=== PATIENT | female | born 1990 | race Caucasian/White ===

== ENCOUNTER 2016-04-08 15:33 | Emergency (ER) | payer MEDICAID ==
[~2016-04-08] VITALS: Ht 157.5 cm; Wt 70.0 kg
[2016-04-08 15:42] VITALS: Ht 157.5 cm; Wt 70.0 kg
--- NOTE | 2016-04-08 18:36 | ERD ---
ER Documentation Chief Complaint Date/Time DATE: 04/08/16 TIME: 18:34 Chief Complaint ap rad back x 3 days HPI This 26-year-old female who presents to the emergency department today complaining of abdominal pain for the past 2 months and patien states that it got worse yesterday. She states her last menstrual period was on the 30th but had some spotting this morning. She took Advil this morning. Denies any nausea vomiting fevers or chills. ROS All systems reviewed and are negative except as per history of present illness. Medications Home Meds Active Scripts Hydrocodone/Acetaminophen ([place] 5-325 Tablet) 1 Each Tablet, 1 TAB PO Q6H Y for PAIN, #10 TAB Prov:BUSHRA MCGREGOR PA-C 04/08/16 Ibuprofen* (Motrin*) 800 Mg Tab, 800 MG PO Q6, #30 TAB Prov:BUSHRA MCGREGOR PA-C 04/08/16 Allergies Allergies: Coded Allergies: No Known Allergy (Unverified , 02/16/15) PMhx/Soc Medical and Surgical Hx: pt denies Medical Hx, pt denies Surgical Hx Hx Alcohol Use: No Hx Substance Use: No Hx Tobacco Use: No Smoking Status: Never smoker Physical Exam Vitals Vital Signs Date Time Temp Pulse Resp B/P Pulse Ox O2 Delivery O2 Flow Rate FiO2 04/08/16 15:42 98.1 78 20 130/78 99 Physical Exam Const: No acute distress Head: Atraumatic Eyes: Normal Conjunctiva ENT: Normal External Ears, Nose and Mouth. Neck: Full range of motion..~ No meningismus. Resp: Clear to auscultation bilaterally Cardio: Regular rate and rhythm, no murmurs Abd: Soft, diffuse abdominal tenderness non distended. Normal bowel sounds Skin: No petechiae or rashes Back: No midline or flank tenderness Ext: No cyanosis, or edema Neur: Awake and alert Psych: Normal Mood and Affect Result Diagram: 04/08/16194404/08/161944 Results 24 hrs Laboratory Tests Test 04/08/16 19:02 04/08/16 19:45 Bedside Urine Blood 1+ 1+ Bedside Urine Glucose (UA) Negative Negative Bedside Urine Ketones (LAB) Negative Negative Bedside Urine Leukocyte Esterase (L Negative Negative Bedside Urine Nitrite (LAB) Negative Negative Bedside Urine Protein (LAB) Negative Negative Bedside Urine pH (LAB) 6.0 6.0 Alanine Aminotransferase (ALT/SGPT) 50IU/L Albumin 4.6g/dl Albumin/Globulin Ratio 1.35 Alkaline Phosphatase 57IU/L Anion Gap 18 Aspartate Amino Transf (AST/SGOT) 24IU/L Basophils # 0.010^3/ul Basophils % 0.2% Blood Urea Nitrogen 9mg/dl Calcium Level 9.4mg/dl Carbon Dioxide Level 27mmol/L Chloride Level 102mmol/L Creatinine 0.54mg/dl Direct Bilirubin 0.00mg/dl Eosinophils # 0.110^3/ul Eosinophils % 1.0% Globulin 3.40g/dl Glucose Level 122mg/dl Hematocrit 34.5% Hemoglobin 11.8g/dl Indirect Bilirubin 0.2mg/dl Lipase 134U/L Lymphocytes # 2.610^3/ul Lymphocytes % 28.2% Mean Corpuscular Hemoglobin 29.4pg Mean Corpuscular Hemoglobin Concent 34.1g/dl Mean Corpuscular Volume 86.3fl Mean Platelet Volume 9.4fl Monocytes # 0.510^3/ul Monocytes % 5.1% Neutrophils # 6.010^3/ul Neutrophils % 65.5% Nucleated Red Blood Cells # 0.010^3/ul Nucleated Red Blood Cells % 0.0/100WBC Platelet Count 01764^3/UL Potassium Level 3.6mmol/L Red Blood Count 3.9910^6/ul Red Cell Distribution Width 13.7% Sodium Level 143mmol/L Total Bilirubin 0.2mg/dl Total Protein 8.0g/dl White Blood Count 9.210^3/ul Current Medications Medications (Trade) Dose Ordered Sig/[place] Route PRN Reason Start Time Stop Time Status Last Admin Dose Admin Acetaminophen/ Hydrocodone Bitart ([place] (5/325)) 1 tab ONCE ONCE PO 04/08/16 19:30 04/08/16 19:31 DC 04/08/16 19:46 Patient: RISHI DYER : 1990 Age: 26 Sex: F MR #: [id number] DOS: 04/08/16 1918 Ordering MD: BUSHRA MCGREGOR PA-C Location: [facility] Room/Bed: PROCEDURE: CT abdomen and pelvis without intravenous contrast. CLINICAL INDICATION: Pain. TECHNIQUE: CT of the abdomen/pelvis was performed utilizing axial images with reconstructions in sagittal and coronal planes. The administered radiation dose is CTDI 8.7 mGy, DLP 448.3 mGy-cm. COMPARISON: No pertinent prior examinations were submitted for comparison. FINDINGS: Visualized Chest: The visualized lung bases are clear. Abdomen: The liver, spleen, pancreas, gallbladder,and adrenal glands are unremarkable. The kidneys are without hydronephrosis. No definite urinary calculi are seen. There is no evidence of bowel obstruction. The appendix is normal. No intra- abdominal free air is seen. There is no evidence of intra-abdominal adenopathy or free fluid. Pelvis: There is no evidence of pelvic adenopathy. The uterus and ovaries are without enlargement. The urinary bladder is unremarkable. There is trace pelvic free fluid. Osseous structures: Unremarkable. IMPRESSION: No acute findings. RPTAT: HIKT .Ed Zacarias MD, MD Date Time Electronically viewed and signed by .Ed Zacarias MD, on 04/08/2016 21:03 .T/ CC: BUSHRA MCGREGOR PA-C Procedures/[facility] 26-year-old female who presents to emergency apparently complaining of abdominal pain for the past 2 months. He also had some vaginal spotting today. I did obtain a UA and urine test patient was unsure if she was . UA is negative for infection Urine test is negative. I then obtain laboratory work as well as imaging. Laboratory work shows no elevated white blood cell count. Her hemoglobin is very mildly decreased. Her platelets are within normal limits. Her electrolytes are within normal limits. Her glucose is within normal limits. Her liver function is within normal limits. Her lipase is within normal limits. CT abdomen and pelvis noncontrast shows no evidence of pelvic adenopathy. Uterus and ovaries are without enlargement. Bladder is unremarkable. There is trace pelvic free fluid. There is no evidence of bowel obstruction. The appendix is normal. There is no intra-abdominal free air. There is no hydronephrosis. Gallbladder is unremarkable Patient has abdominal pain of uncertain etiology. She will be given a prescription for [place] as well as Motrin for home. I cannot say for certain why the patient has had increase in vaginal spotting again today and her symptoms may be consistent with dysfunctional uterine bleeding. There is no evidence to suggest acute surgical abdomen. Patient is not . Low suspicion for ectopic . At this time the patient is stable for discharge and outpatient management. Patient should follow up with their PCP in the next 1-2 days. They may return to the emergency department sooner for any persistent or worsening of symptoms. Patient understood and agreed with the plan. Departure Diagnosis: Primary Impression: Abdominal pain Abdominal location: generalized Qualified Code: R10.84 - Generalized abdominal pain Condition: Fair BUSHRA MCGREGOR PA-C Apr 08, 2016 18:35
[2016-04-08 19:02] LABS: URINE BLOOD (Dip) POC 1+ (NEGATIVE)
[2016-04-08] MEDS ORDERED: HYDROCODONE/APAP (5/325) TAB PO ONE (19:30)
[2016-04-08 19:44] LABS: URINE BLOOD (Dip) POC 1+ (NEGATIVE)
[2016-04-08 20:09] LABS: BASOPHILS % 0.2 % (0.0-2.0); EOSINOPHILS # 0.1 10^3/ul (0.0-0.5); HEMATOCRIT 34.5 % (37.0-47.0); HEMOGLOBIN 11.8 g/dl (12.0-16.0); LYMPHOCYTES # 2.6 10^3/ul (0.8-2.9); LYMPHOCYTES % 28.2 % (15.0-51.0); MEAN CORPUSCULAR HEMOGLOBIN 29.4 pg (29.0-33.0); MEAN CORPUSCULAR HGB CONC 34.1 g/dl (32.0-37.0); MEAN CORPUSCULAR VOLUME 86.3 fl (82.0-101.0); MEAN PLATELET VOLUME 9.4 fl (7.4-10.4); MONOCYTE # 0.5 10^3/ul (0.3-0.9); MONOCYTES % 5.1 % (0.0-11.0); NEUTROPHILS % 65.5 % (39.0-77.0); PLATELET COUNT 246 10^3/UL (140-440); RED BLOOD COUNT 3.99 10^6/ul (4.20-5.40); RED CELL DISTRIBUTION WIDTH 13.7 % (11.5-14.5); UNCORRECTED WBC 9.2 10^3/ul (4.8-10.8); WHITE BLOOD COUNT 9.2 10^3/ul (4.8-10.8)
[2016-04-08 20:14] LABS: CONDITION 1
[2016-04-08 20:18] LABS: ALBUMIN 4.6 g/dl (3.3-4.9); POTASSIUM 3.6 mmol/L (3.5-5.1)
[2016-04-08 20:20] LABS: CREATININE 0.54 mg/dl (0.44-1.00)
[2016-04-08 20:21] LABS: ALBUMIN/GLOBULIN RATIO 1.35; BILIRUBIN,INDIRECT 0.2 mg/dl (0-1.1); BILIRUBIN,TOTAL 0.2 mg/dl (0.2-1.3); CALCIUM 9.4 mg/dl (8.4-10.2)
--- NOTE | 2016-04-08 21:03 | RADRPT ---
PROCEDURE: CT abdomen and pelvis without intravenous contrast. CLINICAL INDICATION: Pain. TECHNIQUE: CT of the abdomen/pelvis was performed utilizing axial images with reconstructions in s agittal and coronal planes. The administered radiation dose is CTDI 8.7 mGy, DLP 448.3 mGy-cm. COMPARISON: No pertinent prior examinations were submitted for comparison. FINDINGS: Visualized Chest: The visualized lung bases are clear. Abdomen: The liver, spleen, pancreas, gallbladder,and adrenal glands are unremarkable. The kidneys are without hydronephrosis. No definite urinary calculi are seen. There is no evidence of bowel obstruction. The appendix is normal. No intra-abdominal free air is seen. There is no evidence of intra-abdominal adenopathy or free fluid. Pelvis: There is no evidence of pelvic adenopathy. The uterus and ovaries are without enlargement. The uri nary bladder is unremarkable. There is trace pelvic free fluid. Osseous structures: Unremarkable. IMPRESSION: No acute findings. RPTAT: HIKT .Ed Zacarias MD, MD Date Time Electronically viewed and signed by .Ed Zacarias MD, on 04/08/2016 21:03 .T/
[2016-04-08] MEDS ORDERED: IBUP800T25 PO (22:08)
[2016-04-08] MEDS ORDERED: HYDR-906 PO (22:09)
[2016-04-08 22:14] VITALS: BP 120/64; PULSE 65; RESP 16; TEMP 98.4
== END 2016-04-08 22:22 | disposition home or self-care (01) ==
LOC: FTE 15:33
DX: R10.84 Generalized abdominal pain (principal)
CPT/HCPCS: 36415; 74176; 80053; 81003; 83690; 85025; Z7502; Z7610

== ENCOUNTER 2016-11-16 04:20 | Emergency (ER) | payer SELFPAY ==
[~2016-11-16] VITALS: Ht 154.9 cm; Wt 75.0 kg
[~2016-11-16 04:20] MED LIST: HYDR-906 PO; IBUP800T25 PO
[2016-11-16 04:25] VITALS: Ht 154.9 cm; Wt 75.0 kg
[2016-11-16 04:43] LABS: URINE BLOOD (Dip) POC 1+ (NEGATIVE)
[2016-11-16] MEDS ORDERED: NITR-58 PO (04:55)
[2016-11-16] MEDS ORDERED: PHEN-538 PO (04:55)
--- NOTE | 2016-11-16 04:55 | ERD ---
ER Documentation Chief Complaint Date/Time DATE: 11/16/16 TIME: 04:53 Chief Complaint pelvic pain radiating to lower back x2 days, + dysuria HPI 26-year-old female presents here in emergency department for complaints of pelvic suprapubic pain radiating to the back and dysuria for 2 days. patient's complaining of pelvic pain cramping pain, 6/10 scale, accompanied with dysuria. patient denies any nausea vomiting fever or chills. patient denies any diarrhea or constipation. ROS All systems reviewed and are negative except as per history of present illness. Medications Home Meds Active Scripts Hydrocodone/Acetaminophen ([place] 5-325 Tablet) 1 Each Tablet, 1 TAB PO Q6H Y for PAIN, #10 TAB Prov:BUSHRA MCGREGOR PA-C 04/08/16 Ibuprofen* (Motrin*) 800 Mg Tab, 800 MG PO Q6, #30 TAB Prov:BUSHRA MCGREGOR PA-C 04/08/16 Allergies Allergies: Coded Allergies: No Known Allergy (Unverified , 02/16/15) PMhx/Soc Medical and Surgical Hx: pt denies Medical Hx, pt denies Surgical Hx Hx Alcohol Use: No Hx Substance Use: No Hx Tobacco Use: No FmHx Family History: No coronary disease, No diabetes, No other Physical Exam Vitals Vital Signs Date Time Temp Pulse Resp B/P Pulse Ox O2 Delivery O2 Flow Rate FiO2 11/16/16 04:25 97.4 87 18 116/69 100 Physical Exam GENERAL: The patient is well developed and appropriate for usual state of health, in no apparent distress. CHEST: Clear to auscultation bilaterally. There are no rales, wheezes or rhonchi. HEART: Regular rate and rhythm. No murmurs, clicks, rubs or gallops. No S3 or S4. ABDOMEN: Soft, nontender and nondistended. Good bowel sounds. No rebound or guarding. No gross peritonitis. No gross organomegaly or masses. No Momin sign or McBurney point tenderness. BACK: No midline or flank tenderness. EXTREMITIES: Equal pulses bilaterally. There is no peripheral clubbing, cyanosis or edema. No focal swelling or erythema. Full range of motion. Grossly neurovascularly intact. NEURO: Alert and oriented. Cranial nerves 2-12 intact. Motor strength in all 4 extremities with 5/5 strength. Sensation grossly intact. Normal speech and gait. SKIN: There is no apparent rash or petechia. The skin is warm and dry. HEMATOLOGIC AND LYMPHATIC: There is no evidence of excessive bruising or lymphedema. No gross cervical, axillary, or inguinal lymphadenopathy. Results 24 hrs Laboratory Tests Test 11/16/16 04:48 Bedside Urine pH (LAB) 5.5 Bedside Urine Protein (LAB) Negative Bedside Urine Glucose (UA) Negative Bedside Urine Ketones (LAB) Negative Bedside Urine Blood 1+ Bedside Urine Nitrite (LAB) Negative Bedside Urine Leukocyte Esterase (L 2+ Procedures/MDM Medical Decision Making: Patients symptoms are consistent with urinary tract infection. There is low suspicion for pyelonephritis. There is low suspicion for abdominal emergencies at this time. Patients abdominal exam is normal. There is low suspicion for sepsis. Patient appears well and is hemodynamically stable. Disposition: Home. Stable Prescription Macrobid Pyridium Instructions: Patient is advised to take medications as prescribed. Patient is advised to rest, increase fluid intake and do good perineal hygiene. Patient is advised that if symptoms are worse, severe abdominal pain, uncontrolled vomiting , high fever, severe flank pain, worst signs and symptoms, to return to the emergency department immediately. Otherwise, patient can follow up with primary care doctor in 5-7 days. Departure Diagnosis: Primary Impression: UTI (urinary tract infection) Urinary tract infection type: acute cystitis Hematuria presence: without hematuria Qualified Code: N30.00 - Acute cystitis without hematuria Condition: Stable Patient Instructions: Understanding Urinary Tract Infections (UTIs) Additional Instructions: Patient is advised to take medications as prescribed. Patient is advised to rest, increase fluid intake and do good perineal hygiene. Patient is advised that if symptoms are worse, severe abdominal pain, uncontrolled vomiting, high fever, severe flank pain, worst signs and symptoms, to return to the emergency department immediately. Otherwise, patient can follow up with primary care doctor in 5-7 days. ALCIDES RUELAS NP Nov 16, 2016 04:52
== END 2016-11-16 05:18 | disposition home or self-care (01) ==
LOC: FTE 04:20
DX: N30.00 Acute cystitis without hematuria (principal)
CPT/HCPCS: 81003; 99283